=== PATIENT | female | born 1965 | race Caucasian/White ===

== ENCOUNTER 2020-04-11 07:58 | Day surgery (SDC) | payer OTHER, SELFPAY ==
[~2020-04-11] VITALS: Ht 157.5 cm; Wt 62.1 kg
[2020-04-11] MEDS ORDERED: DIPHENHYDRAMINE INJ 50 MG/ML VIAL IV ONE (07:59)
[2020-04-11] MEDS ORDERED: methylPREDNISolone ACETATE 80 MG/ML IM ONE (07:59)
[2020-04-11] MEDS ORDERED: LIDOCAINE 2%, 20 ML MDV INJ ONE (07:59)
[2020-04-11] MEDS ORDERED: IOPAMIDOL 50 ML VIAL IV ONE (07:59)
[2020-04-11] MEDS ORDERED: DIPHENHYDRAMINE INJ 50 MG/ML VIAL ONE (09:15)
[2020-04-11] MEDS ORDERED: MIDAZOLAM HCL 5 MG/5 ML VIAL ONE (09:15)
[2020-04-11 11:20] VITALS: BP_SYST 121
== END 2020-04-11 11:20 | disposition home or self-care (01) ==
LOC: SDS 07:58 → SMU 08:01 → SDS 11:20
PROVIDERS: ATTEND Internal Medicine
DX: M47.26 Other spondylosis with radiculopathy, lumbar region (principal); Z20.828 Contact with and (suspected) exposure to other viral communicable diseases
CPT/HCPCS: 64493; J1040; J1200; J2001; J2250; J7120; Q9967; U0003; 76000

== ENCOUNTER 2020-10-31 07:55 | Day surgery (SDC) | payer OTHER, SELFPAY ==
[~2020-10-31] VITALS: Ht 157.5 cm; Wt 60.8 kg
[2020-10-31] MEDS ORDERED: MIDAZOLAM HCL 5 MG/5 ML VIAL ONE ×2 (12:51→12:57)
[2020-10-31] MEDS ORDERED: DIPHENHYDRAMINE INJ 50 MG/ML VIAL ONE ×2 (12:52→12:57)
[2020-10-31 13:08] VITALS: BP_SYST 135
== END 2020-10-31 11:40 | disposition home or self-care (01) ==
LOC: SDS 07:55 → SMU 07:58 → SDS 11:40
PROVIDERS: ATTEND Internal Medicine
DX: M51.16 Intervertebral disc disorders with radiculopathy, lumbar region (principal); G89.4 Chronic pain syndrome; Z20.828 Contact with and (suspected) exposure to other viral communicable diseases; Z79.899 Other long term (current) drug therapy
CPT/HCPCS: 62323; J1200; J2250; J7030; U0003; 76000